=== PATIENT | male | born 1965 | race Caucasian/White ===

== ENCOUNTER 2020-09-09 01:09 | Day surgery (SDC) | payer OTHER, SELFPAY ==
[2020-09-01 14:50] VITALS: BMI 23.1
[2020-09-09 10:56] VITALS: BP 128/89; PULSE 71; RESP 16; TEMP 36.7; O2SAT 99
[2020-09-09] MEDS: LACTATED RINGERS 1,000 ML 150 ML IV CONT (11:01)
--- NOTE | 2020-09-09 11:15 | P.PNAN_ITS ---
Anes - Initial Pre Proc Eval Procedure: Operation Date: 09/09/20 11:30 Proposed Procedures p Colonoscopy - Gregory Coates MD Date/Time: 09/09/20 11:15 Surgeon: Gregory Coates MD Pre Op Diagnosis: weight loss Patient Data Age: 54 Gender: M Height: 5 ft 8 in Weight: 68.1 kg Last Vital Signs Temp 98.1 F 09/09/20 10:56 Pulse 71 09/09/20 10:56 Resp 16 09/09/20 10:56 BP 128/89 09/09/20 10:56 Pulse Ox 99 09/09/20 10:56 Allergies Allergy/AdvReac Type Severity Reaction Status Date / Time temazepam [From Restoril] Allergy Mild Unknown Verified 09/09/20 10:55 Home Medications Medication Instructions Recorded Confirmed Type amlodipine 10 mg tablet 10 mg PO DAILY tablet 08/26/20 09/01/20 History esomeprazole magnesium 20 mg 20 mg PO DAILY 08/26/20 09/01/20 History capsule,delayed release rosuvastatin 20 mg tablet 20 mg PO DAILY tablet 08/26/20 09/01/20 History Ambien CR 12.5 mg PO HS PRN 09/01/20 09/01/20 History Patient hx anesthesia problems: none Family hx anesthesia problems: none [facility] Past Medical History Medical History (Updated 08/26/20 @ 14:28 by Gregory Coates MD) Early satiety Weight loss Social History Social History (Updated 08/26/20 @ 13:34 by Tiffanie Abel CMA) Smoking status: Never smoker Alcohol intake: never Drinks per week: 5 Alcohol use details: WINE Substance use: never Living arrangements: alone Gender identity (if verbalized by the patient): Male Spiritual care concerns: No Anes - Eval Final PreProcedure Day of Procedure 09/09/20 11:15 Patient weight: normal Heart: regular rate and rhythm Lungs: clear to auscultation Airway: Mallampati scale class II Neurological: alert and oriented Last oral intake: >/= 8 hours ASA classification: II Emergent: no Anesthetic plan: proceed Anesthesia type and monitoring: general GIVS and standard monitoring Informed Consent: The patient's anesthetic plan and its attendant risks and benefits were discussed with the patient/family/POA. Questions were solicited and answers provided to the satisfaction of the patient/family/POA.
--- NOTE | 2020-09-09 11:35 | PM.HPGS ---
History of Present Illness History of Present Illness Consent: Risks, benefits, and alternatives have been discussed and questions answered. Patient agrees to proceed with procedure. Chief complaint: weight loss Narrative: Hayn Camacho is a 54 year old male with weight loss, CT scan negative Review of Systems Constitutional: Constitutional: Denies headache(s) and Denies weakness Eyes: Eyes: Denies blurry vision ENT: Reports Normal hearing present, Denies headache(s) and Denies neck pain Cardiovascular: Cardiovascular: Denies chest pain and Denies dyspnea Respiratory: Respiratory: Denies dyspnea Gastrointestinal: Gastrointestinal: Reports no additional gastrointestinal complaints Genitourinary: Genitourinary: Denies dysuria Musculoskeletal: Musculoskeletal: Denies neck pain Integumentary/Breasts: Skin/Breast: Denies dry skin Neurologic: Reports Normal hearing present, Denies headache(s) and Denies weakness Psychiatric: Psychiatric: Denies anxiety Endocrine: Endocrine: Denies change in body appearance Hematologic/Lymphatic: Hematologic/Lymphatic: Denies easy bleeding Allergic/Immunologic: Allergic/Immunologic: Denies urticaria PMF Past Medical History Medical History (Updated 08/26/20 @ 14:28 by Gregory Coates MD) Early satiety Weight loss Social History Social History (Updated 08/26/20 @ 13:34 by Tiffanie Abel CMA) Smoking status: Never smoker Alcohol intake: never Drinks per week: 5 Alcohol use details: WINE Substance use: never Living arrangements: alone Gender identity (if verbalized by the patient): Male Spiritual care concerns: No Meds Home Medications and Allergies Home Medications Medication Instructions Recorded Confirmed Type amlodipine 10 mg tablet 10 mg PO DAILY tablet 08/26/20 09/01/20 History esomeprazole magnesium 20 mg 20 mg PO DAILY 08/26/20 09/01/20 History capsule,delayed release rosuvastatin 20 mg tablet 20 mg PO DAILY tablet 08/26/20 09/01/20 History Ambien CR 12.5 mg PO HS PRN 09/01/20 09/01/20 History Allergies Allergy/AdvReac Type Severity Reaction Status Date / Time temazepam [From Restoril] Allergy Mild Unknown Verified 09/09/20 10:55 Vital Signs Vital Signs - 24 hr 09/09/20 10:56 Temperature 98.1 F Pulse Rate 71 Respiratory Rate 16 Blood Pressure 128/89 Pulse Oximetry 99 Exam Const: General: comfortable and no acute distress HENMT: General nose exam: Normal nares present Eyes: General: appearance normal, both eyes and all related structures Neck: Neck: no JVD Resp: Auscultation: clear to auscultation bilaterally Cardio: Rate: regular rate Rhythm: regular rhythm GI: Inspection: non-distended GI Palp: Yes Soft to palpation Skin: General skin exam: normal color Neuro: General: gait normal Speech: normal speech Extrem: General: normal to inspection Psych: Mental Status: mental status grossly normal Assessment and Plan Assessment and plan (1) Weight loss: Code(s): R63.4 - Abnormal weight loss Status: Acute
--- NOTE | 2020-09-09 11:36 | WPDHPUPDATE1 ---
History and Physical Update Update Date/Time: 09/09/20 11:36 History and Physical has been reviewed, including an updated exam of the patient. There are NO changes in the patient's condition. Risks, benefits, and alternatives have been discussed and questions answered. Patient agrees to proceed with procedure.
[2020-09-09 11:53] VITALS: BP 100/62; PULSE 67; RESP 16; O2SAT 98
[2020-09-09 12:03] VITALS: BP 100/65; PULSE 68; RESP 16; O2SAT 100
[2020-09-09 12:10] VITALS: BP 103/67; PULSE 68; RESP 16; O2SAT 100
== END 2020-09-09 12:20 | disposition home or self-care (01) ==
PROVIDERS: Visit Provider Internal Medicine Gastroenterology
PROC: 0DJD8ZZ Inspection of Lower Intestinal Tract, Via Natural or Artificial Opening Endoscopic (ICD-10-PCS; CPT 45378; principal; 2020-09-09 11:30)
DX: Z12.11 Encounter for screening for malignant neoplasm of colon (principal); D12.3 Benign neoplasm of transverse colon; K57.30 Diverticulosis of large intestine without perforation or abscess without bleeding; K64.8 Other hemorrhoids
CPT/HCPCS: 45385; 88305; J2704; J7120